=== PATIENT | male | born 1975 ===

== ENCOUNTER 2017-06-24 17:09 | Emergency (ER) | payer SELFPAY ==
[2017-06-24 17:36] VITALS: BP 165/95; PULSE 57; RESP 18; TEMP 98.7; O2SAT 98
[2017-06-24] MEDS ORDERED: TDAP Vaccine 0.5 mL Syr IM ONE (17:49)
--- NOTE | 2017-06-24 17:53 | ED PDOC ---
Arrival/HPI - General Chief Complaint: Eye Problem Time Seen by Provider: 06/24/17 17:14 Historian: Patient, Family - History of Present Illness Narrative History of Present Illness (Text): 06/24/17 17:57 42yr old male presents today with pain and blurry vision to right eye. pt states last night he got poked in the eye with the leaf of a pineapple. pt states he has minimal pain yesterday but when he woke up today he had burning. pt denies fever/chills. denies periorbital pain or swelling. pt c/o burning sensation and photophobia. tetanus is greater than 5 years. Past Medical History - Provider Review Nursing Documentation Reviewed: Yes - Travel History Have you recently traveled outside [place] w/in the past 3 mons?: No - Tetanus Immunization Tetanus Immunization: Unknown - Cardiac Hx Hypertension: Yes - Psychiatric Hx Substance Use: No Family/Social History - Physician Review Nursing Documentation Reviewed: Yes Family/Social History: Unknown Family HX Smoking Status: Never Smoked Hx Alcohol Use: No Hx Substance Use: No Allergies/Home Meds Allergies/Adverse Reactions: Allergies No Known Allergies Allergy (Verified 06/24/17 17:28) Home Medications: Home Meds Medication Instructions Recorded Confirmed Losartan [Cozaar] 50 mg PO DAILY 06/24/17 06/24/17 Review of Systems - Review of Systems Constitutional: absent: Fatigue, Fevers Eyes: Photophobia, Eye Pain ENT: absent: Sore Throat, Sinus Congestion Respiratory: absent: SOB, Cough Cardiovascular: absent: Chest Pain, Palpitations Gastrointestinal: absent: Abdominal Pain, Nausea, Vomiting Musculoskeletal: absent: Arthralgias Skin: absent: Rash, Pruritis Neurological: absent: Headache, Dizziness Psychiatric: absent: Anxiety, Depression Physical Exam Vital Signs Reviewed: Yes Vital Signs Temp Pulse Resp BP Pulse Ox 06/24/17 17:24 98.7 F 57 L 18 165/95 H 98 Temperature: Afebrile Blood Pressure: Hypertensive Pulse: Regular Respiratory Rate: Normal Appearance: Positive for: Well-Appearing, Non-Toxic, Comfortable Pain Distress: None Mental Status: Positive for: Alert and Oriented X 3 - Systems Exam Head: Present: Atraumatic Pupils: Present: PERRL Extroacular Muscles: Present: EOMI Conjunctiva: Present: Injected, Other (+ right eye conjunctival injection with 1mm corneal abrasion with dye uptake. ) Mouth: Present: Moist Mucous Membranes Neck: Present: Normal Range of Motion Respiratory/Chest: Present: Clear to Auscultation, Good Air Exchange. No: Respiratory Distress, Accessory Muscle Use Cardiovascular: Present: Regular Rate and Rhythm Upper Extremity: Present: Normal ROM Lower Extremity: Present: Normal ROM Neurological: Present: GCS=15, Speech Normal Skin: Present: Warm, Dry Psychiatric: Present: Alert, Oriented x 3 Medical Decision Making ED Course and Treatment: 06/24/17 18:00 Patient is nontoxic well appearing in no distress Visual acuity within normal limits right eye; 20/30 right eye; Conjunctival injection noted, PERRLA, extraocular muscles intact. + corneal abrasion noted with dye uptake. tetanus updated Will give tobramycin eye drops prescription. pt was advised to f/u with the eye doctor within the next 2 days. pt was advised to take medications as prescribed; pt was advised immediately if symptoms worsen, persist or if new symptoms develop. Patient verbalizes understanding of discharge instructions and need for immediate followup. all aspects of this case were discussed the attending of record. Impression: corneal abrasion Tobrex: 2 drops in the affected eye 4 times daily motrin every 6 hours as needed for pain. Followup with the eye doctor within the next 2 days Return immediately if symptoms worsen persist or if new symptoms develop; blurry vision, worsening eye pain, worsening redness or any other concerning symptoms develop. Follow up with the primary care physician within the next 2 days - Medication Orders Current Medication Orders: Discontinued Medications Tetanus/Reduced Diphtheria/Acell Pertussis (Boostrix Vaccine Inj) 0.5 ml IM .ONCE ONE Stop: 06/24/17 17:50 Disposition/Present on Arrival - Present on Arrival Any Indicators Present on Arrival: No History of DVT/PE: No History of Uncontrolled Diabetes: No Urinary Catheter: No History of Decub. Ulcer: No History Surgical Site Infection Following: None - Disposition Have Diagnosis and Disposition been Completed?: Yes Diagnosis: Corneal abrasion Disposition: HOME/ ROUTINE Disposition Time: 17:50 Patient Plan: Discharge Patient Problems: Current Active Problems Problem Status Onset Corneal abrasion Acute Condition: GOOD Discharge Instructions (ExitCare): Corneal Abrasion Print Language: BELIZEAN Additional Instructions: Tobrex: 2 drops in the affected eye 4 times daily motrin every 6 hours as needed for pain. Followup with the eye doctor within the next 2 days Return immediately if symptoms worsen persist or if new symptoms develop; blurry vision, worsening eye pain, worsening redness or any other concerning symptoms develop. Follow up with the primary care physician within the next 2 days Prescriptions: Ibuprofen [Motrin] 600 mg PO Q6H PRN #20 tab PRN Reason: pain/fever reduction Tobramycin 0.3% [Tobrex 0.3% Ophth Oint] 1 appl OD TID #1 tube Referrals: Umair Lai [Staff Provider] - Follow up with primary George Ferrell DO [Staff Provider] - Follow up with primary Forms: [employer] ([place]), WORK NOTE
== END 2017-06-24 18:11 | disposition home or self-care (01) ==
LOC: ED 17:09
DX: S05.01XA Injury of conjunctiva and corneal abrasion without foreign body, right eye, initial encounter (principal); W22.8XXA Striking against or struck by other objects, initial encounter; Y92.9 Unspecified place or not applicable; Z23 Encounter for immunization